=== PATIENT | male | born 1995 | race Caucasian/White ===

== ENCOUNTER 2021-10-12 15:28 | Emergency (ER) | payer SELFPAY ==
[2021-10-12] MEDS ORDERED: HYDROcodone/Acetaminophen 7.5/325 mg Tablet ONE (16:09)
[2021-10-12] MEDS ORDERED: Bupivacaine PF 0.5% 30 ML VIAL ONE (17:29)
== END 2021-10-12 18:38 | disposition home or self-care (01) ==
LOC: CSHERS 15:28 → EDBD 15:28 → CSHERS 18:38
DX: S52.512A Displaced fracture of left radial styloid process, initial encounter for closed fracture (principal); S52.572A Other intraarticular fracture of lower end of left radius, initial encounter for closed fracture; W51.XXXA Accidental striking against or bumped into by another person, initial encounter
CPT/HCPCS: 25605; 99283; S0020